=== PATIENT | female | born 1965 | race Caucasian/White ===

== ENCOUNTER 2022-06-12 10:44 | Outpatient (CLI) | payer BC | END 2022-06-12 10:45 | disposition home or self-care (01) | LOC: BICMAMMO 10:44 | PROVIDERS: ATTEND Family Medicine | DX: Z12.31 Encounter for screening mammogram for malignant neoplasm of breast (principal) | CPT/HCPCS: 77063; 77067 ==

== ENCOUNTER 2022-08-14 14:15 | Outpatient (CLI) | payer BC | END 2022-08-14 14:16 | disposition home or self-care (01) | LOC: BICCT 14:15 | PROVIDERS: ATTEND Orthopaedic Surgery Hand Surgery | DX: S62.001A Unspecified fracture of navicular [scaphoid] bone of right wrist, initial encounter for closed fracture (principal) ==

== ENCOUNTER 2023-08-26 12:19 | Outpatient (CLI) | payer BC | END 2023-08-26 12:20 | disposition home or self-care (01) | LOC: BICMAMMO 12:19 | PROVIDERS: ATTEND Family Medicine | DX: Z12.31 Encounter for screening mammogram for malignant neoplasm of breast (principal); R92.1 Mammographic calcification found on diagnostic imaging of breast; Z80.3 Family history of malignant neoplasm of breast | CPT/HCPCS: 77063; 77067 ==

== ENCOUNTER 2023-09-02 08:53 | Outpatient (CLI) | payer BC | END 2023-09-02 08:54 | disposition home or self-care (01) | LOC: BICMAMMO 08:53 | PROVIDERS: ATTEND Family Medicine | DX: R92.1 Mammographic calcification found on diagnostic imaging of breast (principal) | CPT/HCPCS: G0279 ==

== ENCOUNTER 2024-06-30 08:37 | Outpatient (CLI) | payer BC | END 2024-06-30 08:38 | disposition home or self-care (01) | LOC: BICMAMMO 08:37 | PROVIDERS: ATTEND Family Medicine | DX: Z78.0 Asymptomatic menopausal state (principal); M85.851 Other specified disorders of bone density and structure, right thigh; M85.852 Other specified disorders of bone density and structure, left thigh | CPT/HCPCS: 77080 ==

== ENCOUNTER 2024-09-12 09:22 | Outpatient (CLI) | payer BC | END 2024-09-12 09:23 | disposition home or self-care (01) | LOC: BICMAMMO 09:22 | PROVIDERS: ATTEND Family Medicine | DX: Z12.31 Encounter for screening mammogram for malignant neoplasm of breast (principal); Z80.3 Family history of malignant neoplasm of breast | CPT/HCPCS: 77063; 77067 ==

== ENCOUNTER 2025-09-14 13:27 | Outpatient (CLI) | payer BC | END 2025-09-14 13:28 | disposition home or self-care (01) | LOC: BICMAMMO 13:27 | PROVIDERS: ATTEND Family Medicine | DX: Z12.31 Encounter for screening mammogram for malignant neoplasm of breast (principal); Z80.3 Family history of malignant neoplasm of breast | CPT/HCPCS: 77063; 77067 ==